=== PATIENT | female | born 1985 | race Caucasian/White ===

== ENCOUNTER 2017-11-12 10:43 | Outpatient (AMBR) | payer MEDICAID, SELFPAY ==
--- NOTE | 2017-11-12 11:38 | PT.ODAYNRPT ---
PT Outpatient Daily Note Date of Service: November 12, 2017 OP Daily Note Visit Reasons: FOOT PAIN Outpatient Physical Therapy Treatment Date: 11/12/17 Subjective: Pt mention that her ankle still hurts. It now pops and tingle. Objective: Please see flow chart Assessment: minimal exercises performed today due to pain with all planes of motions. Plan: Continue with PT Length of Time (minutes) of Treatment: 30 Minutes Office Procedures PT Procedures PT Date of Service: 11/12/17 Therapeutic Exercise 30 minutes: Yes
== END 2017-12-03 23:59 ==
PROVIDERS: PCP Nurse Practitioner; Referring Provider Nurse Practitioner; Visit Provider Nurse Practitioner
DX: I10 Essential (primary) hypertension (principal)
CPT/HCPCS: 97110

== ENCOUNTER 2025-04-26 01:51 | Emergency (ER) | payer SELFPAY ==
[2025-04-26 01:52] VITALS: BMI 49.6
[2025-04-26 02:01] VITALS: BP 123/84; PULSE 106; RESP 18; TEMP 37.1; O2SAT 100
--- NOTE | 2025-04-26 02:08 | PD.EDURI ---
Upper Respiratory Inf. RME/HPI General Chief Complaint: Dental/Oral/Throat Stated Complaint: THROAT PAIN, SOB Time Seen by Provider: 04/26/25 02:07 Arrival date/time: 04/26/25 01:51 39F with history of asthma presents to ED with several days nasal congestion and throat irritation. Tonight, patient woke up with SOB and bark-like cough. Patient is UTD on childhood vaccinations. Patient states she drank some cold water and the cold air seemed to help. Patient tested herself for flu and COVID at home and they were negative. Limitations: no limitations Related Data Home Medications ?Medication ?Instructions ?Recorded ?Confirmed hydrocodone 10 mg-acetaminophen 1 tab PO Q6H PRN Pain 02/11/19 10/09/21 325 mg tablet levalbuterol tartrate 45 1 puff inhalation Q6H 03/29/19 10/09/21 mcg/actuation aerosol inhaler (Xopenex HFA) ondansetron HCl 4 mg tablet 4 mg PO Q6H PRN Nausea 10/09/21 10/09/21 Previous Rx's ?Medication ?Instructions ?Recorded dicyclomine 20 mg tablet 20 mg PO BID PRN pain #20 tabs 12/28/21 pantoprazole 40 mg tablet,delayed 40 mg PO QDAY #14 tabs 12/28/21 release (Protonix) prednisone 50 mg tablet 50 mg PO QDAY 5 days #5 tabs 04/26/25 Allergies Allergy/AdvReac Type Severity Reaction Status Date / Time cephalexin (From Keflex) Allergy Severe Hives Verified 11/07/23 06:58 gabapentin Allergy Severe Irritable Verified 11/07/23 06:58 hydromorphone Allergy Severe RASH ALL Verified 11/07/23 06:58 OVER ibuprofen Allergy Severe SEVERE Verified 11/07/23 06:58 SKIN REACTION metronidazole Allergy Severe Rash Verified 11/07/23 06:58 morphine Allergy Severe RASH Verified 11/07/23 06:58 oxycodone (From Percocet) Allergy Severe Palpitation Verified 11/07/23 06:58 s pregabalin (From Lyrica) Allergy Severe Chest Pain Verified 11/07/23 06:58 albuterol AdvReac Severe TACHYCARDIA Verified 11/07/23 06:58 vancomycin AdvReac Severe RASH Verified 11/07/23 06:58 Review of Systems Review of Systems Systems Reviewed: All systems reviewed, normal except as documented ENT Ears, Nose, Mouth, and Throat: Reports as per HPI and Reports sore throat (irritation) Cardiovascular Cardiovascular: Reports dyspnea Respiratory Respiratory: Reports as per HPI and Reports dyspnea Past Medical History Past Medical History NEUROLOGIC: Positive Neurological Disorders, Seizures, Migraine and Head Trauma CARDIAC: Positive Cardiac Disorders, Angina and Edema; Negative Congestive Heart Failure RESPIRATORY: Positive Asthma and Sleep Apnea; Negative Chronic Obstructive Pulmonary Disease (COPD) GASTROINTESTINAL: Positive Gastrointestinal Disorders, Diverticulitis, Hemorrhoids, Gastroesophageal Reflux Disease and Obesity; Negative Hepatitis GENITOURINARY: Negative Genitourinary Disorders or Renal Disease REPRODUCTIVE: Positive Previous Pregnancies MUSCULOSKELETAL: Positive Musculoskeletal Disorders ENT: Positive Head Trauma ENDOCRINE: Negative Endocrine Disorders, Diabetes Mellitus Type 1 or Diabetes Mellitus Type 2 HEMATOLOGIC: Negative Blood Disorders or Sickle Cell Disease PSYCHO/SOCIAL: Positive Anxiety and Post Traumatic Stress Disorder OTHER HISTORY: Positive Anesthesia Reactions, MRSA and Chicken Pox; Negative Hospitalization, Autoimmune Disease, Shingles, Falls, Blood Transfusions, Blood Transfusion Reaction, Chemotherapy, Radiation Therapy or Cancer Family History FAMILY HISTORY: Positive Family Psychiatric Problems, Family Respiratory Disorders, Family Cardiac Disorders, Family Gastrointestinal Problems and Family Surgery; Negative Family Cancer or Family Anesthesia Reaction Surgical History SURGICAL: Positive Tonsillectomy, Abdominal Surgery (Gastric sleeve) and Section; Negative Cardiac Surgery, Endocrine Surgery, Ear Surgery, Tympanostomy Tube or Eye Surgery Social History SMOKING STATUS: Never smoker ED Exam General Limitations: Present no limitations General appearance: Present alert and in no apparent distress Head Head exam: Present atraumatic ENT ENT exam: Present normal exam, normal oropharynx and mucous membranes moist Neck Neck exam: Present normal inspection, full ROM and trachea midline Chest Chest inspection: Present normal inspection and symmetric chest wall rise Respiratory Respiratory exam: Present normal lung sounds bilaterally Neurological Exam Neurological exam: Present alert and oriented X3 Psychiatric Psychiatric exam: Present normal affect and normal mood Skin Skin exam: Present warm, dry, intact and normal color Course Quality Measures none Orders Category Date Time Status XR soft tissue neck Stat Exams 04/26/25 02:09 Taken Strep A Rapid Stat Lab 04/26/25 02:10 Completed Dexamethasone Inj [Decadron Inj] Med 04/26/25 02:07 Discontinued 10 mg PO X1 ONE Vital Signs Vital signs: Vital Signs Temperature 98.8 F 04/26/25 02:01 Pulse Rate 106 H 04/26/25 02:01 Respiratory Rate 18 04/26/25 02:01 Blood Pressure 123/84 04/26/25 02:01 Pulse Oximetry (%) 100 04/26/25 02:01 Oxygen Delivery Method Room Air 04/26/25 02:01 O2 at 100% on RA and WNLs Upper Respiratory Infection MDM Narrative MDM Narrative:: 39F with history of asthma presents to ED with several days nasal congestion and throat irritation. Tonight, patient woke up with SOB and bark-like cough. Patient is UTD on childhood vaccinations. Patient states she drank some cold water and the cold air seemed to help. Patient tested herself for flu and COVID at home and they were negative. Physical exam reveals clear oropharynx and lungs. Somewhat bark-like cough. Speech normal. Patient is afebrile, alert, but mildly anxious. Telerad XR read unremarkable. Steroids significant improvement. Swabs neg. Meds and student financial services counselor given. Patient data External records reviewed:: [facility] previous records Clinical information provided by:: patient Social determinants that could affect healthcare access:: mental health Patient has the following chronic illnesses:: asthma How is presenting disease/condition affected by chronic disease/condition?: exacerbated by Evaluation data The following diagnostics were reviewed and interpreted by me:: radiology exam(s) Lab and/or radiology exams considered but not ordered:: ordered Interpretation Summary: above Medications / Prescriptions Medications or Prescriptions considered but not ordered:: ordered Medication administrations:: Medication Administration History Discontinued Medications Dexamethasone Sodium Phosphate (Dexamethasone Sod Phos Inj 10 Mg/Ml Vial) 10 mg PO X1 ONE Stop: 04/26/25 02:08 Last Admin: 04/26/25 02:14 Dose: 10 mg Documented By: Comments: po above Consultations Consultation(s) initiated? (list below): No Diagnosis Upper Respiratory Differential Diagnosis: upper respiratory infection, croup, otitis media, sinusitis, viral infection, bronchitis, influenza, pharyngitis and other (epiglottitis) Most likely diagnosis given after review of the tests above:: URI Admission Indicated Admission indicated?: not indicated Admission Request Was there a request for admission?: No Disposition Plan Disposition Plan: Discharge Discharge Attestation Discharge Attestation: The patient and all family members were given an opportunity to ask questions and understood the discharge instructions. Discharge instructions specifically effects, indications for sooner follow up or return to the emergency department, and the expected course of current diagnosis. Patient condition: Stable Discharge Plan Plan Patient Disposition: HOME (Self Care) Discharge Disposition comment: Stable Prescriptions/Referrals Prescriptions/Med Rec: New prednisone 50 mg tablet 50 mg PO QDAY 5 Days Qty: 5 0RF No Action dicyclomine 20 mg tablet 20 mg PO BID PRN (Reason: pain) Qty: 20 0RF pantoprazole [Protonix] 40 mg tablet,delayed release (DR/EC) 40 mg PO QDAY Qty: 14 0RF hydrocodone-acetaminophen 10-325 mg tablet 1 tab PO Q6H PRN (Reason: Pain) levalbuterol tartrate [Xopenex HFA] 45 mcg/actuation Hfa Aerosol Inhaler 1 puff INHALATION Q6H ondansetron HCl [Zofran] 4 mg Tablet 4 mg PO Q6H PRN (Reason: Nausea) Referrals: No Primary/Family,Physician [Primary Care Provider] - In 1 week Problem List Clinical Impression: URI (upper respiratory infection) Patient/Caregiver Discharge Instructions Education Materials: ED URI, Viral, No Abx (Adult) Additional Instructions: Please follow-up with PCP within 24-48 hours and return immediately if symptoms worsen. Take OTC antihistamine as needed until symptoms resolve. Finish entire steroid course. Try to sleep upright for the next few days. Print Language: Moroccan Stand Alone Forms: Patient Portal Info Letter KEELY/CHARMAINE Supervising Physician KEELY/CHARMAINE Supervising Physician: Dr. Lemus
--- NOTE | 2025-04-26 02:09 | XR_ITS ---
EXAMINATION: Lateral soft tissue neck single view TECHNIQUE: Lateral soft tissue neck single view Date and time: April 26, 2025 at 0220 hours INDICATIONS: Nasal congestion and throat irritation several days, coughing FINDINGS: Normal epiglottis No opaque foreign body No prevertebral soft tissue prominence IMPRESSION: Normal epiglottis
[2025-04-26] MEDS: DEXAMETHASONE SOD PHOS INJ 10 MG/ML VIAL PO (02:14)
[2025-04-26 02:22] LABS: Strep A Rapid Negative (Negative)
[2025-04-26 04:02] VITALS: BP 150/83; PULSE 87; RESP 18; TEMP 36.8; O2SAT 97
== END 2025-04-26 04:02 | disposition home or self-care (01) ==
PROVIDERS: Physician Assistant; Emergency Provider Emergency Medicine
DX: J06.9 Acute upper respiratory infection, unspecified (principal); J45.909 Unspecified asthma, uncomplicated
CPT/HCPCS: 70360; 87651; 99283; J1100